=== PATIENT | male | born 1990 | race Caucasian/White ===

== ENCOUNTER 2016-07-31 10:02 | Emergency (ER) | payer MEDICAID, OTHER ==
[~2016-07-31] VITALS: Ht 180.3 cm; Wt 76.0 kg
[~2016-07-31 10:02] MED LIST: DOXY100T20 PO
[2016-07-31 10:06] VITALS: Ht 180.3 cm; Wt 76.0 kg
--- NOTE | 2016-07-31 12:22 | RADRPT ---
PROCEDURE: Chest x-ray CLINICAL INDICATION: Cough TECHNIQUE: Chest single view COMPARISON: None FINDINGS: The heart is normal in size. The pulmonary vessels are normal in caliber. The lungs are clear. Th e costophrenic angles are sharp. The visualized bony thorax is unremarkable. IMPRESSION: No acute cardiopulmonary disease. RPTAT: HH .Brian Cerda MD, MD Date Time Electronically viewed and signed by .Brian Cerda MD, MD on 07/31/2016 12:21 .W/
[2016-07-31] MEDS ORDERED: ALBU8.5H3 INH (12:35)
[2016-07-31] MEDS ORDERED: BENZ100C70 PO (12:35)
[2016-07-31] MEDS ORDERED: D-ME473S2 PO (12:35)
--- NOTE | 2016-07-31 12:45 | ERD ---
ER Documentation Chief Complaint Date/Time DATE: 07/31/16 TIME: 12:42 Chief Complaint COUGH , SORE THROAT X 1 WEEK HPI Patient is a 25-year-old male who presents to the ED with cough, sore throat and post nasal drip x 1 week. He states that the cough is productive and dry. He has a history of asthma. He has taken cough syrup at home as well as [place] cough drops with minimal relief. He denies chest pain, shortness of breath or difficulty breathing. He denies leg pain or swelling. He denies headache or dizziness. He denies shortness of breath. He denies recent travel.No other complaints today. ROS All systems reviewed and are negative except as per history of present illness. Medications Home Meds Active Scripts Albuterol Sulfate* (Proair HFA*) 8.5 Gm Hfa.aer.ad, 2 PUFF INH Q4, #1 INHALER Prov:BRAYAN FISHER PA-C 07/31/16 Benzonatate* (Tessalon Perle*) 100 Mg Capsule, 100 MG PO Q8H Y for COUGH for 14 Days, CAP Prov:BRAYAN FISHER PA-C 07/31/16 Dextromethorphan Hb-Promethazine Hcl* (Promethazine DM* Syrup) 473 Ml Syrup, 5 ML PO Q6 Y for COUGH for 14 Days, ML Prov:BRAYAN FISHER PA-C 07/31/16 Doxycycline Hyclate* (Doxycycline Hyclate*) 100 Mg Tablet.dr, 100 MG PO BID for 14 Days, #28 TAB Prov:AMOR BURGESS PA-C 05/03/16 Allergies Allergies: Coded Allergies: peanut (Verified Allergy, Severe, 05/03/16) PMhx/Soc History of Surgery: Yes (HEART SURGERY A BABY.) Anesthesia Reaction: No Hx Neurological Disorder: No Hx Respiratory Disorders: No Hx Cardiac Disorders: No Hx Psychiatric Problems: No Hx Miscellaneous Medical Probl: No Hx Alcohol Use: Yes Hx Substance Use: Yes (MEDICAL MARIJUANA) Hx Tobacco Use: No Physical Exam Vitals Physical Exam GENERAL: Well-developed, well-nourished male. Appears in no acute distress. HEAD: Normocephalic, atraumatic. EYES: Pupils are equally reactive bilaterally. EOMs grossly intact. No conjunctival erythema. ENT: Moist mucous membranes. No uvula deviation. No kissing tonsils. No exudates. NECK: Supple. No lymphadenopathy or thyromegaly. No meningismus. negative kernig. negative brudinski. LUNG: Clear to auscultation bilaterally. No rhonchi, wheezing, rales or coarse breath sounds. HEART: Regular rate and rhythm. No murmurs, rubs or gallops. Extremities: Equal pulses bilaterally. No peripheral clubbing, cyanosis or edema. No unilateral leg swelling.negative Mervin sign. NEUROLOGIC: Alert and oriented. Moving all four extremities. 5/5 strength in all extremities. Normal speech. Steady gait. SKIN: Normal color. Warm and dry. No rashes or lesions. Capillary refill < 2 seconds Procedures/MDM ER COURSE: I kept the patient and/or family informed of laboratory and diagnostic imaging results throughout the emergency room course. EKG, MONITORS, & DIAGNOSTIC IMAGING: [place] [id number] Radiology Main Line: [phone] DIAGNOSTIC IMAGING REPORT Patient: DAHLIA CHAPIN : 1990 Age: 25 Sex: M MR #: [id number] DOS: 07/31/16 1141 Ordering MD: BRAYAN FISHER PA-C Location: [facility] Room/Bed: PROCEDURE: Chest x-ray CLINICAL INDICATION: Cough TECHNIQUE: Chest single view COMPARISON: None FINDINGS: The heart is normal in size. The pulmonary vessels are normal in caliber. The lungs are clear. The costophrenic angles are sharp. The visualized bony thorax is unremarkable. IMPRESSION: No acute cardiopulmonary disease. RPTAT: HH .Brian Cerda MD, MD Date Time Electronically viewed and signed by .Brian Cerda MD, MD on 07/31/2016 12:21 .W/ CC: BRAYAN FISHER PA-C MEDICAL DECISION MAKING: This is a 25-year-old male who presents with cough, sore throat and postnasal drip. Vital signs were reviewed. Patient is afebrile. Patient is not hypoxic. Patient is not toxic or ill-appearing. Patient likely has URI of viral etiology. Temperature 98.1, pulse 90 and O2 sat 98. Low suspicion for pneumonia, PE, pneumothorax, ACS, epiglottitis, obstruction, TB, pertussis, meningitis, sepsis. Low suspicion for PE as PERC criteria is very low. Low suspicion for peritonsillar abscess, strep pharyngitis, mononucleosis, dental abscess. Low suspicion for ACS, PE, AAA, dissection, DVT DISCHARGE: At this time, patient is stable for discharge and outpatient management with no new complaints during the ER course. Patient was sent home with albuterol, Tessalon Perles and Promethazine DM. Patient will be discharged home with instructions to recheck for new or worsening symptoms such as fever, nausea, weakness, LOC and to follow up with primary care in the next 1-2 days. Patient was advised to return to the ER for any new or worsening symptoms. Plan was discussed and patient and/or family understands and agrees. Home instructions were given. Patient was not able to found. Multiple attempts were tried to contact patient. Patient not found. No paperwork or discharge paperwork was given to patient. Patient was stable at time of discharge, however unable to be found. Patient has eloped. Departure Diagnosis: Primary Impression: URI (upper respiratory infection) URI type: unspecified URI Qualified Code: J06.9 - Upper respiratory tract infection, unspecified type Condition: Stable Patient Instructions: Preventing Common Respiratory Infections Additional Instructions: Call your primary care doctor TOMORROW for an appointment during the next 1-2 days.See the doctor sooner or return here if your condition worsens before your appointment time. BRAYAN FISHER PA-C Jul 31, 2016 12:45 Call your primary care doctor TOMORROW for an appointment during the next 1-2 days.See the doctor sooner or return here if your condition worsens before your appointment time. BRAYAN FISHER PA-C Jul 31, 2016 12:45 BRAYAN FISHER PA-C Jul 31, 2016 12:45
== END 2016-07-31 15:54 | disposition left against medical advice (07) ==
LOC: FTE 10:02
DX: J06.9 Acute upper respiratory infection, unspecified (principal)
CPT/HCPCS: 71010; Z7502

== ENCOUNTER 2017-03-24 16:51 | Emergency (ER) | payer MEDICAID, OTHER ==
[~2017-03-24] VITALS: Ht 180.3 cm; Wt 75.5 kg
[~2017-03-24 16:51] MED LIST changes: +ALBU8.5H3 INH; +BENZ100C70 PO; +D-ME473S2 PO
[2017-03-24 16:55] VITALS: Ht 180.3 cm; Wt 75.5 kg
--- NOTE | 2017-03-24 18:05 | ERD ---
ER Documentation Chief Complaint Date/Time DATE: 03/24/17 TIME: 17:58 Chief Complaint SUDDEN "HOT" CP RADIATING DOWN LT ARM CAUSING FINGER TO MOVE DOWN HPI This 26-year-old male presents with sensation of radiating pain down his left arm. Secondary to an argument today. It caused his index finger to flex. He was able to flex his left index finger manually. He has additional pain which was sharp like the feeling of a needle in his left chest wall at the same time. This is now resolved. Denies shortness of breath. He has had some mild URI symptoms over the last 1-2 weeks but no significant current cough, sore throat no fevers. ROS All systems reviewed and are negative except as per history of present illness. Medications Home Meds Active Scripts Albuterol Sulfate* (Proair HFA*) 8.5 Gm Hfa.aer.ad, 2 PUFF INH Q4, #1 INHALER Prov:BRAYAN FISHER PA-C 07/31/16 Benzonatate* (Tessalon Perle*) 100 Mg Capsule, 100 MG PO Q8H Y for COUGH for 14 Days, CAP Prov:BRAYAN FISHER PA-C 07/31/16 Dextromethorphan Hb-Promethazine Hcl* (Promethazine DM* Syrup) 473 Ml Syrup, 5 ML PO Q6 Y for COUGH for 14 Days, ML Prov:BRAYAN FISHER PA-C 07/31/16 Doxycycline Hyclate* (Doxycycline Hyclate*) 100 Mg Tablet.dr, 100 MG PO BID for 14 Days, #28 TAB Prov:AMOR BURGESS PA-C 05/03/16 Allergies Allergies: Coded Allergies: peanut (Verified Allergy, Severe, 05/03/16) PMhx/Soc History of Surgery: Yes (HEART SURGERY A BABY.) Anesthesia Reaction: No Hx Neurological Disorder: No Hx Respiratory Disorders: No Hx Cardiac Disorders: No Hx Psychiatric Problems: No Hx Miscellaneous Medical Probl: No Hx Alcohol Use: Yes Hx Substance Use: Yes (MEDICAL MARIJUANA) Hx Tobacco Use: No Physical Exam Vitals Vital Signs Date Time Temp Pulse Resp B/P Pulse Ox O2 Delivery O2 Flow Rate FiO2 03/24/17 16:55 98.8 66 20 151/83 99 Physical Exam Const: []Alert, [id number] Head: Atraumatic Eyes: Normal Conjunctiva ENT: Normal External Ears, Nose and Mouth. Neck: Full range of motion..~ No meningismus. Resp: Clear to auscultation bilaterally Cardio: Regular rate and rhythm, no murmurs Abd: Soft, non tender, non distended. Normal bowel sounds Skin: No petechiae or rashes Back: No midline or flank tenderness Ext: No cyanosis, or edema Neur: Awake and alert Psych: Normal Mood and Affect Procedures/MDM EKG: Rate/Rhythm: [Normal Sinus Rhythm] rate equals 59 QRS, ST, T-waves: [No changes consistent w/ acute ischemia] Impression: [No evidence of ischemia or arrhythmia]. Impression-mild sinus bradycardia, otherwise no acute findings. Session was held with patient regarding his symptoms which are multiple. Sharp pain in the left chest wall pain radiating down his left arm causing a spasm of his index finger not likely related. Symptoms described by the patient does not sound cardiac related. I suggested muscular skeletal, OR possibly related to hyperventilation given that it was during an argument. Patient denies any current symptoms. Patient appears satisfied with explanation of symptoms likely related to musculoskeletal etiology possibly related to an argument OR hyperventilation AND SUBSEQUENTLY ELOPED SATISFIED.. Patient was advised to recheck for new or worsening symptoms or primary care doctor. Further evaluation was offered but patient declined as he gathered his belongings and eloped. Departure Diagnosis: Primary Impression: Chest wall pain Condition: Stable SUKHWINDER LAY MD Mar 24, 2017 18:05
[2017-03-25] MEDS ORDERED: IBUP-1542 PO (15:19)
[2017-03-25] MEDS ORDERED: ONDA4TAB14 PO (15:20)
[2017-03-25] MEDS ORDERED: CIPR500T4 PO (15:54)
== END 2017-03-24 16:58 | disposition left against medical advice (07) ==
LOC: FTE 16:51 → E/R 16:58
DX: R07.89 Other chest pain (principal)

== ENCOUNTER 2017-03-25 11:37 | Emergency (ER) | payer OTHER ==
[~2017-03-25] VITALS: Ht 157.5 cm; Wt 74.7 kg
[2017-03-25 11:52] VITALS: Ht 157.5 cm; Wt 74.7 kg
[2017-03-25] MEDS ORDERED: SOD CHLORIDE 0.9% 1,000 ML IV STA (13:21)
[2017-03-25] MEDS ORDERED: ONDANSETRON 4 MG INJ IV STA (13:21)
--- NOTE | 2017-03-25 13:54 | RADRPT ---
PROCEDURE: Chest x-ray CLINICAL INDICATION: Abdominal pain TECHNIQUE: Chest single view COMPARISON: 07/31/2016 FINDINGS: The heart is normal in size. The pulmonary vessels are normal in caliber. The lungs are clear. Th e costophrenic angles are sharp. The visualized bony thorax is unremarkable. IMPRESSION: No acute cardiopulmonary disease. RPTAT: HH .Brian Cerda MD, Date Time Electronically viewed and signed by .Brian Cerda MD, MD on 03/25/2017 13:54 .W/
[2017-03-25 14:05] LABS: BASOPHILS % 0.7 % (0.0-2.0); EOSINOPHILS % 0.4 % (0.0-7.0); HEMATOCRIT 42.3 % (42.0-52.0); HEMOGLOBIN 14.2 g/dl (14.0-18.0); LYMPHOCYTES # 1.1 10^3/ul (0.8-2.9); LYMPHOCYTES % 19.6 % (15.0-51.0); MEAN CORPUSCULAR HEMOGLOBIN 30.3 pg (29.0-33.0); MEAN CORPUSCULAR HGB CONC 33.6 g/dl (32.0-37.0); MEAN CORPUSCULAR VOLUME 90.2 fl (82.0-101.0); MEAN PLATELET VOLUME 10.7 fl (7.4-10.4); MONOCYTE # 0.6 10^3/ul (0.3-0.9); MONOCYTES % 10.8 % (0.0-11.0); NEUTROPHILS % 68.1 % (39.0-77.0); PLATELET COUNT 212 10^3/UL (140-415); RED BLOOD COUNT 4.69 10^6/ul (4.70-6.10); RED CELL DISTRIBUTION WIDTH 12.3 % (11.5-14.5); WHITE BLOOD COUNT 5.7 10^3/ul (4.8-10.8)
[2017-03-25 14:13] LABS: ADD UMIC YES; UR ASCORBIC ACID NEGATIVE (NEGATIVE); UR BILIRUBIN (Dip) NEGATIVE (NEGATIVE); UR BLOOD (Dip) NEGATIVE (NEGATIVE); UR CLARITY SLIGHTLY CLOUDY (CLEAR); UR COLOR YELLOW (YELLOW); UR GLUCOSE (Dip) NEGATIVE (NEGATIVE); UR KETONES (Dip) NEGATIVE (NEGATIVE); UR LEUKOCYTE ESTERASE (Dip) TRACE Leu/ul (NEGATIVE); UR MUCUS MODERATE /HPF (NONE SEEN); UR NITRITE (Dip) NEGATIVE (NEGATIVE); UR RBC 2 /HPF (0-5); UR SPECIFIC GRAVITY (Dip) 1.028 (1.003-1.030); UR TOTAL PROTEIN (Dip) 1+ mg/dl (NEGATIVE); UR UROBILINOGEN (Dip) 2+ mg/dL (NEGATIVE)
[2017-03-25 14:22] LABS: ALBUMIN 4.7 g/dl (3.3-4.9); ALBUMIN/GLOBULIN RATIO 1.3; BILIRUBIN,INDIRECT 0.7 mg/dl (0-1.1); BILIRUBIN,TOTAL 0.7 mg/dl (0.2-1.3); CALCIUM 9.7 mg/dl (8.4-10.2); POTASSIUM 4.2 mmol/L (3.5-5.1); TOTAL PROTEIN 8.3 g/dl (6.1-8.1)
--- NOTE | 2017-03-25 14:36 | RADRPT ---
PROCEDURE: CT abdomen and pelvis without IV contrast. CLINICAL INDICATION: Abdomen pain. TECHNIQUE: CT scan of the abdomen and pelvis was performed on a [address] scanner. The patient is scanned without IV contrast. Coronal and sagittal reformatted images were obtained from the axia l source images. Images were reviewed on a high-resolution PACS workstation. Total radiation dose: Total CTDIvol: 9.9 mGy. Total DLP: 549 mGy-cm. One or more of the following d ose reduction techniques were used: automated exposure control, adjustment of the mA and/or kV accor ding to patient size, or use of iterative reconstruction technique. COMPARISON: None available. FINDINGS: CT abdomen: The lung bases are clear. The heart is not enlarged without pericardial thickening or effusion. The liver is normal in size and density without focal hepatic mass or biliary dilatation. The splee n is normal in size. The stomach is partially collapsed but is grossly unremarkable. The pancreas as visualized is normal. The gallbladder is normal and there is no evidence of biliary dilatation. The adrenal glands are symmetrical and normal. The kidneys are symmetrically normal bilaterally. N o renal obstructive uropathy or mass lesion is seen.. The aorta is normal in caliber. There is no retroperitoneal lymphadenopathy. The colt hepatis reg ion is clear. The bowel and mesentery, as visualized, are equally unremarkable. CT pelvis: The appendix is normal in the right lower quadrant. The small bowel loops situated within the pelvi s are unremarkable. The pelvic organs are normal. The pelvic sidewalls and inguinal regions are cl ear. No mass, lymphadenopathy is seen. No acute inflammation seen. The urinary bladder is normal. The surrounding osseous structures are unremarkable. No osteolytic or osteoblastic lesion is detect ed. IMPRESSION: 1. Unremarkable CT abdomen pelvis without IV contrast. RPTAT: GG .Eugene Joseph MD, MD Date Time Electronically viewed and signed by .Eugene Joseph MD, on 03/25/2017 14:36 .Y/
[2017-03-25 14:38] LABS: COCAINE Negative (NEGATIVE)
[2017-03-25 14:49] LABS: BARBITURATES Negative (NEGATIVE); BENZODIAZEPINES Negative (NEGATIVE); CANNABINOIDS Positive (NEGATIVE); OPIATES Negative (NEGATIVE)
[2017-03-25] MEDS ORDERED: IBUP-1542 PO (15:19)
[2017-03-25] MEDS ORDERED: ONDA4TAB14 PO (15:20)
[2017-03-25 15:26] LABS: CREATININE 0.92 mg/dl (0.61-1.24)
[2017-03-25] MEDS ORDERED: ONDANSETRON (ODT) 4 MG TAB ODT STA (15:36)
[2017-03-25] MEDS ORDERED: CIPR500T4 PO (15:54)
[2017-03-25] MEDS ORDERED: AZITHROMYCIN 250 MG TAB PO ONE (16:00)
[2017-03-25] MEDS ORDERED: CEFTRIAXONE 250 MG INJ IM ONE (16:00)
[2017-03-25 16:10] VITALS: TEMP 98.3
--- NOTE | 2017-03-25 16:35 | ERD ---
ER Documentation Chief Complaint Date/Time DATE: 03/25/17 TIME: 16:31 Chief Complaint cwp HPI This is a 26-year-old male presents to the ER with multiple complaints. Patient states that he has had chest wall pain since yesterday.Patient denies any shortness of breath. He is also complaining of nausea and nonbilious nonbloody vomiting. He denies any diarrhea. Patient also complains of generalized abdominal pain, headache, dizziness and weakness. Patient admits to smoking cigarettes however denies any other alcohol or drug use. Patient did not lose consciousness. He has not had any head trauma. ROS 12 point review of systems was done, all negative except per HPI. Medications Home Meds Active Scripts Ciprofloxacin Hcl* (Ciprofloxacin Hcl*) 500 Mg Tablet, 500 MG PO BID for 7 Days , TAB Prov:LOC GAMA 03/25/17 Ondansetron (Ondansetron Odt) 4 Mg Tab.rapdis, 4 MG PO Q6H Y for NAUSEA AND/OR VOMITING, #10 TAB Prov:LOC GAMA 03/25/17 Ibuprofen* (Motrin*) 600 Mg Tab, 600 MG PO Q6, #30 TAB Prov:LOC GAMA 03/25/17 Albuterol Sulfate* (Proair HFA*) 8.5 Gm Hfa.aer.ad, 2 PUFF INH Q4, #1 INHALER Prov:BRAYAN FISHER PA-C 07/31/16 Benzonatate* (Tessalon Perle*) 100 Mg Capsule, 100 MG PO Q8H Y for COUGH for 14 Days, CAP Prov:BRAYAN FISHER PA-C 07/31/16 Dextromethorphan Hb-Promethazine Hcl* (Promethazine DM* Syrup) 473 Ml Syrup, 5 ML PO Q6 Y for COUGH for 14 Days, ML Prov:BRAYAN FISHER PA-C 07/31/16 Doxycycline Hyclate* (Doxycycline Hyclate*) 100 Mg Tablet.dr, 100 MG PO BID for 14 Days, #28 TAB Prov:AMOR BURGESS PA-C 05/03/16 Allergies Allergies: Coded Allergies: peanut (Verified Allergy, Severe, 05/03/16) PMhx/Soc History of Surgery: Yes (HEART SURGERY A BABY.) Anesthesia Reaction: No Hx Neurological Disorder: No Hx Respiratory Disorders: No Hx Cardiac Disorders: No Hx Psychiatric Problems: No Hx Miscellaneous Medical Probl: No Hx Alcohol Use: Yes Hx Substance Use: Yes (MEDICAL MARIJUANA) Hx Tobacco Use: No Physical Exam Vitals Vital Signs Date Time Temp Pulse Resp B/P Pulse Ox O2 Delivery O2 Flow Rate FiO2 03/25/17 16:10 98.3 03/25/17 11:52 99.2 74 18 136/75 99 Physical Exam GENERAL: The patient is well developed and appropriate for usual state of health , in no apparent distress. HEENT: Atraumatic. Conjunctivae are pink. Pupils equal, round, and reactive to light. Extraocular muscles are grossly intact. Bilateral tympanic membranes are clear with no evidence of erythema, effusion or dulling of the light reflex. The oropharynx is clear with no erythema or exudates. NECK: C-spine is soft and supple. There is no cervical lymphadenopathy. CHEST: Clear to auscultation bilaterally. There are no rales, wheezes or rhonchi. HEART: Regular rate and rhythm. No murmurs, clicks, rubs or gallops. ABDOMEN: Soft, nontender and nondistended. Good bowel sounds. No rebound or guarding. No gross peritonitis. No gross organomegaly or masses. No San sign or McBurney point tenderness. No pulsatile masses. BACK: No midline or flank tenderness. EXTREMITIES: Equal pulses bilaterally. There is no peripheral clubbing, cyanosis or edema. No focal swelling or erythema. Full range of motion. Grossly neurovascularly intact. NEURO: Alert and oriented. Cranial nerves II through XII are intact. Motor strength in all 4 extremities with 5/5 strength. Sensation grossly intact. Normal speech and gait. SKIN: There is no apparent rash or petechia. The skin is warm and dry. Result Diagram: 03/25/17 1335 03/25/17 1335 Results 24 hrs Laboratory Tests Test 03/25/17 13:35 White Blood Count 5.710^3/ul Red Blood Count 4.6910^6/ul Hemoglobin 14.2g/dl Hematocrit 42.3% Mean Corpuscular Volume 90.2fl Mean Corpuscular Hemoglobin 30.3pg Mean Corpuscular Hemoglobin Concent 33.6g/dl Red Cell Distribution Width 12.3% Platelet Count 35454^3/UL Mean Platelet Volume 10.7fl Neutrophils % 68.1% Lymphocytes % 19.6% Monocytes % 10.8% Eosinophils % 0.4% Basophils % 0.7% Nucleated Red Blood Cells % 0.0/100WBC Neutrophils # (Manual) 3.910^3/ul Lymphocytes # 1.110^3/ul Monocytes # 0.610^3/ul Eosinophils # 0.010^3/ul Basophils # 0.010^3/ul Nucleated Red Blood Cells # 0.010^3/ul Urine Color YELLOW Urine Clarity SLIGHTLY CLOUDY Urine pH 6.0 Urine Specific [place] 1.028 Urine Ketones NEGATIVEmg/dL Urine Nitrite NEGATIVEmg/dL Urine Bilirubin NEGATIVEmg/dL Urine Urobilinogen 2+mg/dL Urine Leukocyte Esterase TRACELeu/ul Urine Microscopic RBC 2/HPF Urine Microscopic WBC 7/HPF Urine Mucus MODERATE/HPF Urine Hemoglobin NEGATIVEmg/dL Urine Glucose NEGATIVEmg/dL Urine Total Protein 1+mg/dl Sodium Level 142mmol/L Potassium Level 4.2mmol/L Chloride Level 107mmol/L Carbon Dioxide Level 26mmol/L Anion Gap 13 Blood Urea Nitrogen 14mg/dl Creatinine 0.92mg/dl Glucose Level 80mg/dl Calcium Level 9.7mg/dl Total Bilirubin 0.7mg/dl Direct Bilirubin 0.00mg/dl Indirect Bilirubin 0.7mg/dl Aspartate Amino Transf (AST/SGOT) 33IU/L Alanine Aminotransferase (ALT/SGPT) 28IU/L Alkaline Phosphatase 73IU/L Total Protein 8.3g/dl Albumin 4.7g/dl Globulin 3.60g/dl Albumin/Globulin Ratio 1.30 Lipase 71U/L Urine Opiates Screen Negative Urine Barbiturates Negative Urine Amphetamines Screen Negative Urine Benzodiazepines Screen Negative Urine Cocaine Screen Negative Urine Cannabinoids Positive Current Medications Medications (Trade) Dose Ordered Sig/Janusz Route PRN Reason Start Time Stop Time Status Last Admin Dose Admin Sodium Chloride (NS) 1,000 ml @ 1,000 mls/hr Q1H STAT IV 03/25/17 13:21 03/25/17 14:20 DC 03/25/17 13:36 Ondansetron HCl (Zofran Inj) 4 mg ONCE STAT IV 03/25/17 13:21 03/25/17 13:22 DC 03/25/17 13:36 Ceftriaxone Sodium (Rocephin) 250 mg ONCE ONCE IM 03/25/17 16:00 03/25/17 16:01 DC 03/25/17 15:48 Azithromycin (Zithromax) 1,000 mg ONCE ONCE PO 03/25/17 16:00 03/25/17 16:01 DC 03/25/17 15:48 Ondansetron HCl (Zofran Odt) 4 mg ONCE STAT ODT 03/25/17 15:36 03/25/17 15:37 DC 03/25/17 15:48 Procedures/MDM Differential diagnosis includes but is not limited to; STEMI, dissection, pneumothorax, PE, esophageal rupture, tamponade, pneumonia, pericarditis, GERD, musculoskeletal, endocarditis, anxiety, acute abdomen. This is a 26-year-old male presents to the ER with multiple complaints. At this time patient's EKG is normal [address] elevation no T-wave inversion this EKG was signed by Dr. Carrillo. His x-ray was negative for any acute intrathoracic abnormality. CT was also negative for acute abdomen. Patient has multiple complaints likely viral in etiology. Patient was given fluids and Zofran in the ER, he is able to tolerate p.o. fluids in the ER and does not appear dehydrated. There was some trace leukocytes on urinalysis, and patient admitted to possibly been exposed to an STD. He was treated prophylactically with Rocephin and azithromycin without any complications. Patient will be sent home with [facility] for potential urinary tract infection. Patient is to follow-up with his primary care doctor within 1-2 days return to ER sooner if symptoms worsen. My medical decision making was shared with the patient he understands and agrees with plan. Departure Diagnosis: Primary Impression: Nausea and vomiting Additional Impression: Chest wall pain Condition: Stable Patient Instructions: Nausea and Vomiting-Adult, Chest Wall Pain, Costochondritis Additional Instructions: Call your primary care doctor TOMORROW for an appointment during the next 1-2 days.See the doctor sooner or return here if your condition worsens before your appointment time. LOC GAMA Mar 25, 2017 16:35
== END 2017-03-25 16:10 | disposition home or self-care (01) ==
LOC: FTE 11:37
DX: R11.2 Nausea with vomiting, unspecified (principal)
CPT/HCPCS: 36415; 71010; 74176; 80053; 80307; 81001; 83690; 85025; 87591; 93005; 96372; 96374; J0696; J2405; J7030; Z7502; Z7610

== ENCOUNTER 2019-04-02 10:35 | Emergency (ER) | payer OTHER ==
[~2019-04-02] VITALS: Ht 180.3 cm; Wt 77.3 kg
[~2019-04-02 10:35] MED LIST changes: -ALBU8.5H3 INH; +ALBU8.5H8 INH; +BENZ-6 PO; -BENZ100C70 PO; +CIPR500T4 PO; +DOXY-214 PO; -DOXY100T20 PO; +ERYT1OIN6 BOTH EYES; +IBUP-1542 PO; +ONDA4TAB14 PO
[2019-04-02 10:43] VITALS: BP 126/86; PULSE 60; RESP 18; Ht 180.3 cm; Wt 77.3 kg
[2019-04-02] MEDS ORDERED: ONDANSETRON 4 MG INJ IV STA (11:48)
[2019-04-02] MEDS ORDERED: SOD CHLORIDE 0.9% 1,000 ML IV STA (11:48)
== END 2019-04-02 12:18 | disposition home or self-care (01) ==
LOC: FTE 10:35
DX: R11.2 Nausea with vomiting, unspecified (principal); Z91.010 Allergy to peanuts
CPT/HCPCS: J7030; Z7502; 99283